=== PATIENT | male | born 1965 | race Caucasian/White ===

== ENCOUNTER 2024-10-19 10:09 | Outpatient (REF) | payer MEDICAID, SELFPAY ==
--- OUTSIDE RECORDS SUMMARY | 2024-10-19 09:45 | XMS_ITS | Encounter Summary ---
Author Organization [employer] Address [address] [facility] 7[address] [place] [address] Care Team Providers Care Caser In Name Role Phone Clarissa Restrepo MD Primary Care Provider Tayla Bhakta RN Unavailable [phone] Rowena Choi Unavailable Encounter Details Date Type Department Care Team ([facility] st Contact Info) Description 10/19/2024 9:45 AM EDT Office Visit [facility] [address] [place], [place] [id number] Frantz Clark MD [address] [place] [address] Type 2 diabetes mellitus without complication, with long-term current use of insulin ([facility]) (Primary Dx); Mixed hyperlipidemia; Hospital discharge follow-up; Primary hypertension Social History Tobacco Use Types Packs/Day Years Used Date Smoking Tobacco: Every Day Cigarettes 0.3 43 Smokeless Tobacco: Never Comments:Smokes 12 cig a day x 45 years. Depression Answer Date Recorded Patient Health Questionnaire-9 Score 9 10/17/2023 Patient Health Questionnaire-9 Score 9 10/17/2023 Last PHQ-9: Questionnaire Data Not on file 0 10/17/2023 Housing Stability Answer Date Recorded What is your housing situation today? I have elissa chaney 10/17/[address] you li ve. Do you have problems with any of the following? Pests such as bugs, ants, or mice 10/17/2023 Food Insecurity Answer Date Recorded Within the past 12 months, y ou worried that your food would run out before you got money to buy more: Not on file 2024 Within the past 12 months,th e food you bought just didn't last and you didn't have enough money to get more: Sometimes True 10/08/2024 Transportation Answer Date Recorded In the past 12 months, has l ack of transportation kept you from medical appts, meetings, work or from getting things needed for daily living? No 10/08/2023 Utilities Answer Date Recorded In the past 12 months, has t he electric, gas, oil or water company threatened to shut off services in your home? No 10/08/2023 Depression Answer Date Recorded Patient Health Questionnaire-2 Score 1 10/17/2023 Internet Access Answer Date Recorded Internet Access Q1 Yes 12/07/2023 Internet Access Q2 Not on file 12/07/2023 Sex and Gender Information Value Date Recorded Sex Assigned at Male 02/05/2022 10:29 AM EDT Legal Sex Male 10:29 AM EDT Gender Identity Male 02/05/2022 10:29 AM EDT Sexual Orientation Straight 02/05/2022 10 :29 AM EDT documented as of this encounter Last Filed Vital Signs Vital Sign Reading Time Taken Comments Blood Pressure 124/90 10/19/2024 9:41 AM EDT Pulse 84 10/19/2024 9:41 AM EDT Temperature 36.8 C (98.3 F) 10/19/2024 9:41 AM EDT Respiratory Rate 20 10/19/2024 9:41 AM EDT Oxygen Saturation 99% 10/19/2024 9:41 AM EDT Inhaled Oxygen Concentration - - Weight 103 kg (227 lb) 10/19/2024 9:41 AM EDT Height 170.2 cm (5' 7 ) 10/19/2024 9:41 AM EDT Body Mass Index 35.55 10/19/2024 9:41 AM EDT documented in this encounter Progress Notes * Frantz Camara MD - 10/19/2024 9:45 AM EDT Subjective Patient ID: Yunior Grissom is a 59 y.o. male who presents for No chief complaint on file.. Diabetes He presents for his follow-up diabetic visit. He has type 2 diabetes mellitus. His disease course has been stable. Pertinent negatives for diabetes include no fatigue, no foot paresthesias, no polydipsia, no polyphagia and no polyuria. Review of Systems Constitutional: Negative for fatigue. Endocrine: Negative for polydipsia, polyphagia and polyuria. Objective Physical Exam Constitutional: Appearance: Normal appearance. Cardiovascular: Rate and Rhythm: Normal rate. Heart sounds: No murmur heard. Pulmonary: Effort: Pulmonary effort is normal. No respiratory distress. Breath sounds: No wheezing. Neurological: General: No focal deficit present. Mental Status: He is alert and oriented to person, place, and time. Psychiatric: Mood and Affect: Mood normal. Behavior: Behavior normal. Assessment/Plan Problem List Items Addressed This Visit Diabetes mellitus (CMS/HCC) - Primary Relevant Medications atorvastatin (Lipitor) 40 MG tablet valsartan (Diovan) 80 MG tablet Other Relevant Orders POCT Glucose Comprehensive Metabolic Panel Hyperlipidemia Relevant Medications atorvastatin (Lipitor) 40 MG tablet Hypertensive disorder Controlled, recently visited er lisinopril was discontinued, started on valsartan 80mg, follow up cardiology Relevant Medications valsartan (Diovan) 80 MG tablet Hospital discharge follow-up Patient admitted at [facility] from 09/28-10/06, he underwent cardiac cath, found with Low EF. Denied furtherepisode of chest pain, shortness of breath. Has cardiology appoinment on November. documented in this encounter Miscellaneous Notes * Assessment & Plan Note - Frantz Camara MD - 10/19/2024 10:17 AM EDTAssociated Problem(s): Hypertensive disorder Controlled, recently visited er lisinopril was discontinued, started on valsartan 80mg, follow up cardiology * Assessment & Plan Note - Frantz Camara MD - 10/19/2024 10:13 AM EDTAssociated Problem(s): Hospital discharge follow-up Patient admitted at [facility] from 09/28-10/06, he underwent cardiac cath, found with Low EF. Denied furtherepisode of chest pain, shortness of breath. Has cardiology appoinment on November. documented in this encounter Plan of Treatment Scheduled Orders Name Type Priority Associated Diagnoses Order Schedule POCT Glucose Point of Care Testing Routine Type 2 diabetes mellitus without complication, with long-term current use of insulin (CMS/HCC) Ordered: 10/19/2024 Comprehensive Metabolic Panel Lab Routine Type 2 diabetes mellitus without complication, with long-term current use of insulin (CMS/HCC) Expected: 10/19/2024 (Approximate), Expires: 10/19/2025 documented as of this encounter Visit Diagnoses Diagnosis Type 2 diabetes mellitus without complication, with long-term current use of insulin (CMS/HCC)- Primary Mixed hyperlipidemia Hospital discharge follow-up Other follow-up examination Primary hypertension Unspecified essential hypertension documented in this encounter Additional Health Concerns Assessment Noted Time PHQ-9 Depression Total Score: 9 10/17/19 24 10:40 AM EDT documented as of this encounter Care Teams Caser In Relationship Specialty Start Date End Date Clarissa Resrtepo MD [address] [place] [id number] PCP - General Internal Medicine 05/20/15 Tayla Bhakta RN [address] [place] [id number] Registered Nurse Family Medicine 09/28/24 Rowena Choi 09/28/24 documented as of this encounter
--- OUTSIDE RECORDS SUMMARY | 2024-10-19 10:53 | XMS_ITS | Encounter Summary ---
Author Organization [facility] Address [address] [place] [address] Care Team Providers Care Manager Intranet Name Role Phone Clarissa Restrepo MD Primary Care Provider [phone] Reason for Visit * Reason Onset Date Comments Procedure 10/07/2024 ILR Implant 11.20 Encounter Details Date Type Department Care Team (Late st Contact Info) Description 10/07/2024 Telephone [facility] - [facility] [address] [facility] [address] [place] [phone] Srini Kamara MD [address] [place] [address] Procedure (ILR Implant 11.20.24) Social History Tobacco Use Types Packs/Day Years Used Date Smoking Tobacco: Some Days Cigarettes Smokeless Tobacco: Never Alcohol Use Standard Drinks/Week Comments No 0 (1 standard drink = 0.6 oz pur e alcohol) Interpersonal Safety Answer Date Record ed Physical Abuse 09/27/2024 Verbal Abuse 09/27/2024 Sex and Gender Information Value Date Recorded Sex Assigned at Not on file Legal Sex Male 9:38 AM EST Gender Identity Not on file Sexual Orientation Not on file documented as of this encounter Progress Notes * Marietta Suarez - 10/14/2024 8:24 AM EDT ILR Implant [id number] Dx Bradycardia R00 w SR at [facility] on 11.20.24 * Marietta Suarez - 10/14/2024 8:16 AM EDT Spoke with patient about procedure. Scheduled on 11.20.[address] Kamara at [facility] at 1030am Mailing packet to patient today Packet mailed to patient includes instructions with medications, follow-up, lab orders, pre/post procedural care, my direct number and pamphlet for procedure Confirmed address on file Arrival time 930am Bloodwork to be done within 30 days of and or at least a week before procedure at any lab of choice, *[facility], [facility] or [facility]* (Labs are not fasting) - ATTACHED TO PACKET (3 papers stapled together) Medication instructions are to hold: continue all medications Packet instructs the patient if they start any new medications to call the office. It may need special instructions to avoid any cancellations You can take all your regular morning medications with some water These instructions are given verbal and written and understood Patient aware if they do NOT follow these instructions or show up to procedure they will have to berescheduled to next available which could take up to 6 to 10 weeks. Patient will have to be fasting from midnight night before procedure. Patient is to report to [facility] to the 3rd floor - Elevator near Patient Registration Patient agreed to all instructions and date, time and location above via phone Case Request sent documented in this encounter Plan of Treatment Upcoming Encounters Date Type Department Care Team (Late st Contact Info) Description 11/20/2024 10:30 AM EDT Hospital Encounter [facility] [address] [place] [address] Srini Kamara MD [address] [address] Bradycardia 11/20/2024 10:30 AM EDT - 11/20/2024 11:00 AM EDT Surgery [facility] Card[facility]ashing Tub [facility] [address] [place] [address] Srini Kamara MD [address] [address] Loop recorder insertion [16666 (CPT )] 11/30/2024 1:40 PM EDT Office Visit [facility] [address] [place] [address] Jamia Boone NP [address] [facility] [address] [place] [address] Scheduled Orders Name Type Priority Associated Diagnoses Orde r Schedule Complete blood count Lab Routine Bradycardia 1 Occurrences starting 10/14/2024 until 10/14/2025 Prothrombin time with INR Lab Routine Bradycardia 1 Occurrences starting 10/14/2024 until 10/14/2025 Basic metabolic panel Lab Routine Bradycardia 1 Occurrences starting 10/14/2024 until 10/14/2025 documented as of this encounter Visit Diagnoses Diagnosis Bradycardia- Primary Other specified cardiac dysrhythmias Bradycardia- Primary Other specified cardiac dysrhythmias Bradycardia Other specified cardiac dysrhythmias documented in this encounter Orders Case Request Count Last Ordered Date First Orde red Date CASE REQUEST EP LAB 1 10/14/2024 documented in this encounter Care Teams Manager Intranet Relationship Specialty Start Date End Date Clarissa Restrepo MD [address] [place], [place] PCP - General Internal Medicine 06/01/24 documented as of this encounter
[2024-10-19 16:01] LABS: Alanine Aminotransferase 59 U/L (0-40); Albumin Level 4.6 g/dL (3.5-5.0); Alkaline Phosphatase 131 U/L (39-117); Anion Gap 13 (12-20); Aspartate Amino Transferase 28 U/L (5-37); Blood Urea Nitrogen 19 mg/dL (9-16); Calcium 9.4 mg/dL (8.4-10.2); Carbon Dioxide 22 mmol/L (22-29); Chloride 111 mmol/L (96-108); Estimated Glomerular Filt Rate > 60; Potassium 3.8 mmol/L (3.3-5.1); Sodium 142 mmol/L (135-145); Total Protein 7.4 g/dL (6.5-8.0)
== END 2024-10-19 10:10 | disposition home or self-care (01) ==
LOC: HO.CHCLDS 10:09
PROVIDERS: Visit Provider Internal Medicine
DX: E11.9 Type 2 diabetes mellitus without complications (principal); Z79.4 Long term (current) use of insulin
CPT/HCPCS: 36415; 80053